=== PATIENT | female | born 1960 | race Caucasian/White ===

== ENCOUNTER 2024-09-13 01:14 | Emergency (ER) | payer OTHER ==
[2024-09-13 01:20] VITALS: RESP 18; TEMP 98; BMI 27.4
[2024-09-13] MEDS ORDERED: ASPIRIN 325 MG TABLET ONE (01:41)
[2024-09-13] MEDS ORDERED: FAMOTIDINE 20 MG TABLET ONE (01:56)
[2024-09-13] MEDS ORDERED: MAG HYDROX/AL HYDROX/SIMETH 30 ML UNIT-DOSE CUP ONE (01:56)
[2024-09-13] MEDS: ASPIRIN 325 MG TABLET PO ONE (01:56)
[2024-09-13 02:03] LABS: BASO % 0.6 % (0-2.0); EOS % 4.4 % (0-4.5); HEMATOCRIT 40.2 % (32.4-45.2); HEMOGLOBIN 13.9 GM/dL (10.7-15.3); LYMPH % 39.6 % (8-40); MCH 31.9 pg (25.7-33.7); MCHC 34.5 g/dl (32.0-36.0); MEAN CELL VOLUME 92.5 fl (80-96); MEAN PLT VOLUME 9.1 fl (7.5-11.1); MONO % 9.5 % (3.8-10.2); NEUT % 45.9 % (42.8-82.8); PLATELET COUNT 235 10^3/uL (134-434); RBC 4.35 M/mm3 (3.60-5.2); RDW 13.4 % (11.6-15.6); WHITE BLOOD COUNT 7.4 K/mm3 (4.0-10.0)
[2024-09-13] MEDS: MAG HYDROX/AL HYDROX/SIMETH 30 ML UNIT-DOSE CUP PO ONE (02:03)
[2024-09-13] MEDS: FAMOTIDINE 10 MG TABLET PO ONE (02:03)
[2024-09-13 02:17] LABS: POTASSIUM 4.2 mmol/L (3.5-5.1)
[2024-09-13 02:21] LABS: ALBUMIN 3.6 g/dl (3.4-5.0); BLOOD UREA NITROGEN 19.3 mg/dL (7-18); MAGNESIUM 1.9 mg/dL (1.8-2.4)
[2024-09-13 02:24] LABS: CREATININE 0.8 mg/dL (0.55-1.3)
[2024-09-13 02:25] LABS: BILIRUBIN,TOTAL 0.5 mg/dL (0.2-1)
[2024-09-13 02:29] LABS: INR 0.87 (0.83-1.09); PROTHROMBIN TIME (PATIENT) 10.1 SEC (9.7-13.0)
[2024-09-13 02:31] LABS: ACTIVATED PTT 26.6 SECONDS (25.2-36.5)
[2024-09-13 03:13] LABS: CALCIUM 8.6 mg/dL (8.5-10.1)
[2024-09-13 06:19] VITALS: BP 119/76; PULSE 60
== END 2024-09-13 06:42 | disposition home or self-care (01) ==
LOC: JER 01:14
DX: R07.2 Precordial pain (principal); R06.02 Shortness of breath
CPT/HCPCS: 36415; 71045-TC-FY; 80053; 82550; 82553; 83735; 84484; 85025; 85610; 85730; 93005; 93010; 99285-25

== ENCOUNTER 2025-03-26 14:59 | Emergency (ER) | payer OTHER ==
[2025-03-26 15:11] VITALS: BP 150/62; PULSE 66; RESP 16; TEMP 97.9; BMI 26.9
[2025-03-26] MEDS ORDERED: LIDOCAINE 4% PATCH TP ONE (15:43)
[2025-03-26] MEDS ORDERED: IBUPROFEN 400 MG TABLET (FP) PO ONE (15:44)
[2025-03-26] MEDS: IBUPROFEN 400 MG TABLET (FP) PO ONE (15:47)
[2025-03-26] MEDS: LIDOCAINE 4% PATCH TP ONE (15:47)
[2025-03-26] MEDS ORDERED: LIDOCAINE PATCH REMOVAL MC SCH (22:00)
== END 2025-03-26 17:10 | disposition home or self-care (01) ==
LOC: JERFT 14:59
DX: M54.2 Cervicalgia (principal); V43.62XA Car passenger injured in collision with other type car in traffic accident, initial encounter; Y92.410 Unspecified street and highway as the place of occurrence of the external cause
CPT/HCPCS: 99283-25

== ENCOUNTER 2025-04-07 09:48 | Day surgery (SDC) | payer OTHER ==
[2025-04-07 07:45] VITALS: BMI 24.5
[2025-04-07] MEDS ORDERED: PROPOFOL 20 ML ONE (10:49)
[2025-04-07 10:53] VITALS: RESP 18; TEMP 97.9
[2025-04-07 12:34] VITALS: BP 133/72; PULSE 59
== END 2025-04-07 12:40 | disposition home or self-care (01) ==
LOC: FASU-ENDO 09:48
PROVIDERS: ATTEND Internal Medicine Gastroenterology
PROC: 0DBM8ZX Excision of Descending Colon, Via Natural or Artificial Opening Endoscopic, Diagnostic (ICD-10-PCS; principal; 2025-04-07 11:12)
DX: Z12.11 Encounter for screening for malignant neoplasm of colon (principal); D12.4 Benign neoplasm of descending colon; K64.1 Second degree hemorrhoids; K64.8 Other hemorrhoids
CPT/HCPCS: 88305-TC

== ENCOUNTER 2025-07-09 08:35 | Emergency (ER) | payer OTHER ==
[2025-07-09 08:42] VITALS: BP 134/70; PULSE 69; RESP 18; TEMP 98.4; BMI 24.5
[2025-07-09 10:14] LABS: HIV INTERPRETATION NEGATIVE (NEGATIVE)
[2025-07-09 10:15] LABS: HCV DIAGNOSTIC IN-HOUSE W/RFLX NON-REACTIVE (NONREACTIVE)
== END 2025-07-09 09:37 | disposition home or self-care (01) ==
LOC: JERFT 08:35
DX: R22.0 Localized swelling, mass and lump, head (principal); K04.7 Periapical abscess without sinus; K08.89 Other specified disorders of teeth and supporting structures; R68.84 Jaw pain; K02.9 Dental caries, unspecified
CPT/HCPCS: 36415; 86803; 87389; 99283-25